=== PATIENT | male | born 1975 | race Caucasian/White ===

== ENCOUNTER 2024-11-06 07:33 | Day surgery (SDC) | payer BC ==
[~2024-11-06 07:33] MED LIST: Sodium Chloride 0.9% 10 ML Syringe FLUSH PRN
[2024-11-06] MEDS ORDERED: Propofol 200 MG/20 ML SDV IV ONE (07:34)
[2024-11-06] MEDS ORDERED: Lidocaine 1% PF 2 ML SDV IV ONE (07:34)
[2024-11-06] MEDS ORDERED: Midazolam 1 MG/ML 2 ML SDV IV ONE (07:34)
[2024-11-06] MEDS: Lactated Ringers 1,000 ML IV SCH (08:26)
[2024-11-06] MEDS: Simethicone Drops 40 MG/0.6 ML 30 ML Bottle ONE (09:23)
== END 2024-11-06 10:41 | disposition home or self-care (01) ==
LOC: FB.SDS 07:33
PROVIDERS: ATTEND Surgery
DX: Z12.11 Encounter for screening for malignant neoplasm of colon (principal); K57.30 Diverticulosis of large intestine without perforation or abscess without bleeding; Z88.8 Allergy status to other drugs, medicaments and biological substances; Z88.1 Allergy status to other antibiotic agents
CPT/HCPCS: 45378; A9270; J2003; J2250; J2704; J7120; 00812